=== PATIENT | female | born 1960 | race Caucasian/White ===

== ENCOUNTER → 2017-08-25 | Outpatient (CLI) | payer BC ==
[~2017-08-25] MED LIST: DCS100C PO; ESTR1TAB24 PO; FEXO30TA17 PO; HYDR-3720 PO; HYDR-89 PO; IBP800T PO; IBUP-30 PO
--- NOTE | 2017-08-28 22:20 | Diagnostic Imaging Report ---
Bilateral screening mammogram 2D views with tomosynthesis The current study was also evaluated with a Computer Aided Detection (CAD) system. INDICATION: Screening. No current complaints stated on the questionnaire. COMPARISON: 08/15/2016. FINDINGS: The breasts are composed of heterogeneously dense parenchyma which may decrease mammographic sensitivity. Scattered benign-appearing calcifications are seen. Allowing for technique and positional differences, no suspicious change is seen. IMPRESSION: Dense breasts with no definite change. ACR BI-RADS Category 2: Benign findings. Result letter will be mailed to the patient. Note: At least 10% of breast cancer is not imaged by mammography. Dictated by: Dictated on workstation # [id number]
== END ==
LOC: RAD 15:28
PROVIDERS: ATTEND Obstetrics & Gynecology
DX: Z12.31 Encounter for screening mammogram for malignant neoplasm of breast (principal)
CPT/HCPCS: 77067

== ENCOUNTER → 2018-09-04 | Outpatient (CLI) | payer BC ==
--- NOTE | 2018-09-05 08:13 | Diagnostic Imaging Report ---
EXAMINATION: Digital mammogram bilateral screening with 3-D tomosynthesis and CAD. This study was compared to the prior exams of 08/25/2017, 08/15/2016 and 10/28/14. At this time there are no current complaints. The current study was also evaluated with a Computer Aided Detection (CAD) system. FINDINGS: The fibroglandular tissue in both breasts is heterogeneously dense. This does limit the sensitivity of this exam. Overall, there does not appear to have been any significant change when compared to the prior study. No primary or secondary sign of malignancy is noted. A few new calcifications have developed in the upper-outer aspect of the right breast. These calcifications have a generally benign appearance. IMPRESSION: There is no radiographic evidence for malignancy. ACR BI-RADS Category 1: Negative. Result letter will be mailed to the patient. Note: At least 10% of breast cancer is not imaged by mammography. Dictated by: Dictated on workstation # [id number]
== END ==
LOC: RAD 08:27
PROVIDERS: ATTEND Obstetrics & Gynecology
DX: Z12.31 Encounter for screening mammogram for malignant neoplasm of breast (principal)
CPT/HCPCS: 77067

== ENCOUNTER → 2019-09-13 | Outpatient (CLI) | payer BC ==
--- NOTE | 2019-09-16 09:23 | Diagnostic Imaging Report ---
INDICATION: Routine screening. COMPARISON: Comparison is made with prior mammograms from 09/04/2018 and 08/25/2017. 2-D and 3-D bilateral screening mammography was performed. The current study was also evaluated with a Computer Aided Detection (CAD) system. 3-D tomosynthesis was also performed and reviewed. FINDINGS: Both breasts are heterogeneously dense, limiting the sensitivity of mammography. The parenchymal pattern is stable. No mass or malignant-appearing microcalcifications are seen. Axillae are unremarkable. IMPRESSION: No mammographic features suspicious for malignancy are identified. ACR BI-RADS Category 1: Negative. Result letter will be mailed to the patient. Note: At least 10% of breast cancer is not imaged by mammography. Dictated by: Dictated on workstation # [id number]
== END ==
LOC: RAD 14:58
PROVIDERS: ATTEND Obstetrics & Gynecology
DX: Z12.31 Encounter for screening mammogram for malignant neoplasm of breast (principal)
CPT/HCPCS: 77067

== ENCOUNTER → 2020-09-14 | Outpatient (CLI) | payer BC ==
--- NOTE | 2020-09-14 13:20 | Diagnostic Imaging Report ---
INDICATION: Routine screening. Comparison is made with prior mammogram 09/13/2019 and 09/04/2018. 2-D and 3-D bilateral screening mammography was performed with CAD. Both breasts are heterogeneously dense, limiting the sensitivity of mammography. The parenchymal pattern is stable. No mass or malignant appearing microcalcifications are seen. Axillae are unremarkable. IMPRESSION: BI-RADS Category 1 No mammographic features suspicious for malignancy are identified. ACR BI-RADS Category 1: Negative. Result letter will be mailed to the patient. Note: At least 10% of breast cancer is not imaged by mammography. Dictated by: Dictated on workstation # [id number]
== END ==
LOC: RAD 11:00
PROVIDERS: ATTEND Obstetrics & Gynecology
DX: Z12.31 Encounter for screening mammogram for malignant neoplasm of breast (principal)
CPT/HCPCS: 77063; 77067

== ENCOUNTER 2021-07-27 05:33 | Outpatient (CLI) | payer BC ==
[~2021-07-27] VITALS: Ht 170.2 cm; Wt 64.1 kg
[2021-07-28] MEDS ORDERED: SPIR25TA PO (12:08)
[2021-07-28] MEDS ORDERED: ACET-2267 PO (12:08)
[2021-07-28] MEDS ORDERED: BIOT5TAB PO (12:08)
[2021-07-28] MEDS ORDERED: ESTR1TAB24 PO (12:08)
[2021-07-28] MEDS ORDERED: CYAN250014 PO (12:08)
== END 2021-07-28 12:25 | disposition home or self-care (01) ==
LOC: PREOP 05:33
PROVIDERS: ATTEND Urology
DX: Z01.818 Encounter for other preprocedural examination (principal)

== ENCOUNTER 2021-08-03 06:22 | Day surgery (SDC) | payer BC ==
[2021-08-03] VITALS (11 sets, daily range): BP systolic 101–123; BP diastolic 59–87
[~2021-08-03] VITALS: Ht 170 cm; Wt 64.1 kg
[~2021-08-03 06:22] MED LIST changes: +ACET-2267 PO; +BIOT5TAB PO; +CYAN250014 PO; +SPIR25TA PO
[2021-08-03] MEDS ORDERED: MIDAZOLAM 2 MG/2 ML (VERSED) VIAL ONE (06:44)
[2021-08-03] MEDS ORDERED: ONDANSETRON 4 MG/2 ML (SDV) Z0FRAN ONE (06:44)
[2021-08-03] MEDS ORDERED: ROCURONIUM 10 MG/ML 5 ML SYRINGE IV ONE (06:44)
[2021-08-03] MEDS ORDERED: fentaNYL INJ 100 MCG/2 ML AMP ONE (06:44)
[2021-08-03] MEDS ORDERED: LIDOCAINE PF 2% 5 ML (XYLOCAINE) VIAL ONE (06:44)
[2021-08-03] MEDS ORDERED: proPOfol 200 MG/20 ML (DIPRIVAN) VIAL IV ONE (06:44)
[2021-08-03] MEDS ORDERED: cefTRIAXone 1,000 MG in WATER (STERILE) FOR INJECTION 10 ML IV ONE (07:00)
[2021-08-03] MEDS: LACTATED RINGERS 1,000 ML IV PRN ×2 (07:00→09:06)
[2021-08-03] MEDS ORDERED: cefTRIAXone 1,000 MG VIAL ONE (07:05)
[2021-08-03] MEDS ORDERED: WATER (STERILE) FOR INJECTION 10 ML ONE (07:05)
[2021-08-03] MEDS ORDERED: ESTRADIOL VAGINAL CREAM 42.5 GM (ESTRACE) VG ONE (07:06)
[2021-08-03] MEDS ORDERED: LIDOCAINE/EPI 1%-1:100,000 (XYLOCAINE) 20ML ONE (07:06)
--- NOTE | 2021-08-03 07:26 | Progress Note-Pre Operative ---
Pre-Operative Progress Note H&P Reviewed The H&P was reviewed, patient examined and no changes noted. Date Seen by Provider: Aug 03, 2021 Time Seen by Provider: 07: Date H&P Reviewed: Aug 03, 2021 Time H&P Reviewed: 07:26 Pre-Operative Diagnosis: CYSTOSCELE AND ELICIA STELLA GARIBAY MD Aug 03, 2021 07:26
--- NOTE | 2021-08-03 07:28 | Progress Note-Post Operative ---
Post-Operative Progess Note Surgeon (s)/Sinter Machine Operator (s) Surgeon STELLA GARIBAY MD Sinter Machine Operator: NONE Pre-Operative Diagnosis CYSTOCELE AND ELICIA Post-Operative Diagnosis SAME Procedure & Operative Findings Date of Procedure 08/03/21 Procedure Performed/Findings ANTERIOR REPAIR, PVS, AND CYSTOSCOPY Anesthesia Type GENERAL Estimated Blood Loss Estimated blood loss (mL): NEGLIGIBLE Specimens/Packing Specimens Removed NONE TO PATH Packing: ESTRACE VAG PACK STELLA GARIBAY MD Aug 03, 2021 07:28
[2021-08-03] MEDS ORDERED: LACTATED RINGERS 1,000 ML IV SCH (07:30)
[2021-08-03] MEDS ORDERED: NEOSTIGMINE 3 MG/3 ML VIAL ONE (08:11)
[2021-08-03] MEDS ORDERED: GLYCOPYRROLATE 0.2 MG/ML (ROBINUL) 2 ML VIAL ONE (08:11)
[2021-08-03] MEDS ORDERED: KETOROLAC 30 MG/ML VIAL ONE (08:17)
[2021-08-03] MEDS ORDERED: SEVOFLURANE (ULTANE) 15 ML INHAL SOLN ONE (08:22)
[2021-08-03] MEDS ORDERED: HYDROmorphone 2 MG/ML VIAL (DILAUDID) IV ONE (08:30)
[2021-08-03] MEDS ORDERED: ONDANSETRON 4 MG/2 ML (SDV) Z0FRAN IVP PRN (08:30)
--- NOTE | 2021-08-03 16:09 | OPERATIVE REPORT ---
DATE OF SERVICE: 08/03/2021 PREOPERATIVE DIAGNOSES: Cystocele and stress urinary incontinence. POSTOPERATIVE DIAGNOSES: Cystocele and stress urinary incontinence. OPERATION PERFORMED: Anterior repair and pubovaginal sling with cystoscopy. SURGEON: Gee Garibay MD ANESTHESIA: General. COMPLICATIONS: None. DESCRIPTION OF PROCEDURE: Under satisfactory general anesthesia, the patient in extended lithotomy position, genitalia were prepped and draped in the usual sterile fashion with separate vaginal prep. Mcgrath catheter was inserted draining clear urine. The anterior vaginal wall was infiltrated with lidocaine with epinephrine and a midline incision was made and carried down to the fascia. There was quite a bit of scar tissue that was sharply excised without causing any injury to the urethra or the bladder. Dissection was carried on both sides to the pubic arch and the white glistening fascia was identified as well. This was approximated with several interrupted 2-0 Vicryl giving excellent support to the bladder and elevation. I then passed the Desara device sling on both sides using the described technique. The sling was sitting nicely under the mid urethra with no twisting, no tension and passage of a hemostat easily between it and the underlying tissue. I removed the Mcgrath catheter and performed cystoscopy to confirm the integrity of the bladder, ureteral orifices and urethra with no foreign body and presence of this sling under the mid urethra. I left the bladder half full, removed the cystoscope, performed a manual Valsalva maneuver that was negative. I reinserted a catheter draining clear fluid. The excess vaginal epithelium was sharply excised and then it was approximated with a running 2-0 Vicryl Rapide type suture with no problem. A 2 grams Estrace vaginal pack was inserted. The needle, sponge, instrument counts were correct x2. Estimated blood loss negligible. The patient tolerated the procedure and anesthesia well and was sent to recovery room in stable condition. Job ID: [id number] DocumentID: [id number] Dictated Date: 08/03/2021 08:22:33 Compliance Paralegal Date: 08/03/2021 16:09:04 Dictated By: GEE GARIBAY MD
[2021-08-03] MEDS ORDERED: ACETAMINOPHEN 500 MG TAB (TYLENOL) PO ONE (18:30)
[2021-08-03] MEDS ORDERED: ACETAMINOPHEN 500 MG TAB (TYLENOL) ONE (18:32)
[2021-08-04 01:50] VITALS: BP 110/60
[2021-08-04 05:25] VITALS: BP 104/56
[2021-08-04 09:00] VITALS: BP 100/56
[2021-08-04] MEDS ORDERED: CIPR-225 PO (10:03)
--- NOTE | 2021-08-04 12:58 | Anesthesia-General Post-Op ---
General Patient Condition Mental Status/LOC: Same as Preop Cardiovascular: Satisfactory Nausea/Vomiting: Absent Respiratory: Satisfactory Pain: Controlled Complications: Absent Post Op Complications Complications None Follow Up Care/Instructions Patient Instructions None needed. Anesthesia/Patient Condition Patient Condition Patient is doing well, no complaints, stable vital signs, no apparent adverse anesthesia problems. No complications reported per nursing. D/C home per [facility] [place] Criteria: Yes HUDSON CROOK CRNA Aug 04, 2021 12:58
== END 2021-08-04 10:40 | disposition home or self-care (01) ==
LOC: SDC 06:22 → WS 09:18 → SDC 08-04 10:40
PROVIDERS: ATTEND Urology
DX: N81.10 Cystocele, unspecified (principal); N39.3 Stress incontinence (female) (male); Z85.828 Personal history of other malignant neoplasm of skin; Z79.899 Other long term (current) drug therapy; Z11.2 Encounter for screening for other bacterial diseases
CPT/HCPCS: 57240; 57288; 87081; 94760; C1771

== ENCOUNTER → 2021-09-20 | Outpatient (CLI) | payer BC ==
[~2021-09-20] MED LIST changes: +CIPR-225 PO
--- NOTE | 2021-09-20 16:08 | Diagnostic Imaging Report ---
INDICATION: Routine screening. COMPARISON: 09/14/2020 and 09/13/2019. TECHNIQUE: 2D and 3D bilateral screening mammography was performed with CAD. FINDINGS: Both breasts are heterogeneously dense, limiting the sensitivity of mammography. The parenchymal pattern is stable. No mass or malignant-appearing microcalcifications are seen. The axillae are unremarkable. IMPRESSION: No mammographic features suspicious for malignancy are identified. ACR BI-RADS Category 1: Negative. Result letter will be mailed to the patient. Note: At least 10% of breast cancer is not imaged by mammography. Dictated by: Dictated on workstation # [id number]
== END ==
LOC: RAD 10:00
PROVIDERS: ATTEND Obstetrics & Gynecology
DX: Z12.31 Encounter for screening mammogram for malignant neoplasm of breast (principal)
CPT/HCPCS: 77063; 77067

== ENCOUNTER → 2022-09-21 | Outpatient (CLI) | payer BC ==
--- NOTE | 2022-09-21 11:00 | Diagnostic Imaging Report ---
INDICATION: Routine screening. COMPARISON: 09/20/2021 and 09/14/2020. TECHNIQUE: 2D and 3D bilateral screening mammography was performed with CAD. FINDINGS: Both breasts are heterogeneously dense, limiting the sensitivity of mammography. The parenchymal pattern is stable. No mass or malignant-appearing microcalcifications are seen. The axillae are unremarkable. IMPRESSION: No mammographic features suspicious for malignancy are identified. ACR BI-RADS Category 1: Negative. Result letter will be mailed to the patient. Note: At least 10% of breast cancer is not imaged by mammography. Dictated by: Dictated on workstation # [id number]
== END ==
LOC: RAD 10:00
PROVIDERS: ATTEND Obstetrics & Gynecology
DX: Z12.31 Encounter for screening mammogram for malignant neoplasm of breast (principal)
CPT/HCPCS: 77063; 77067